=== PATIENT | male | born 1950 | race Caucasian/White ===

== ENCOUNTER 2020-05-27 11:08 | Emergency (ER) | payer MEDICARE ==
[~2020-05-27] VITALS: Ht 175.3 cm; Wt 82.7 kg
[~2020-05-27 11:08] MED LIST: PANT-47 PO
[2020-05-27 11:35] VITALS: BP 127/94
[2020-05-27] MEDS ORDERED: LIDOcaine 1% W/epiNEPHrine 1:200,000 10ml vial IJ ONE (12:10)
[2020-05-27] MEDS ORDERED: TETanus/Pertussis (Acell)/Diphther VAC/PF (Tdap-Adult) 0.5ml syringe IMVAC ONE (12:10)
== END 2020-05-27 14:24 | disposition home or self-care (01) ==
LOC: ER 11:09
DX: S61.217A Laceration without foreign body of left little finger without damage to nail, initial encounter (principal); Z98.890 Other specified postprocedural states; Z79.899 Other long term (current) drug therapy; W26.0XXA Contact with knife, initial encounter; Y93.89 Activity, other specified; Y92.89 Other specified places as the place of occurrence of the external cause; Y99.8 Other external cause status
CPT/HCPCS: 12001; 90715; 99282

== ENCOUNTER 2020-06-21 14:08 | Emergency (ER) | payer MEDICARE ==
[~2020-06-21] VITALS: Ht 175.3 cm; Wt 84.0 kg
[2020-06-21 14:30] VITALS: BP 126/95
== END 2020-06-21 16:45 | disposition home or self-care (01) ==
LOC: ER 14:09
DX: M25.442 Effusion, left hand (principal); Z79.899 Other long term (current) drug therapy; Z98.890 Other specified postprocedural states
CPT/HCPCS: 29130; 73140; 99283

== ENCOUNTER 2020-06-24 16:48 | Emergency (ER) | payer MEDICARE ==
[~2020-06-24] VITALS: Ht 175.3 cm; Wt 82.7 kg
[2020-06-24 16:57] VITALS: BP 172/99
[2020-06-24] MEDS ORDERED: ketorolac trometh. 30mg/ml inj. IM ONE (17:15)
[2020-06-24] MEDS ORDERED: ketorolac tromethamine 15mg/ml inj. IM ONE (17:20)
== END 2020-06-24 17:41 | disposition home or self-care (01) ==
LOC: ER 17:40
DX: S16.1XXA Strain of muscle, fascia and tendon at neck level, initial encounter (principal); Z79.899 Other long term (current) drug therapy; X50.1XXA Overexertion from prolonged static or awkward postures, initial encounter; Y93.89 Activity, other specified; Y92.89 Other specified places as the place of occurrence of the external cause; Y99.8 Other external cause status
CPT/HCPCS: 96372; 99283; J1885

== ENCOUNTER 2021-04-30 08:00 | Emergency (ER) | payer MEDICARE ==
[~2021-04-30] VITALS: Ht 175.3 cm; Wt 69.8 kg
[2021-04-30 08:04] VITALS: BP 141/93
== END 2021-04-30 12:10 | disposition left against medical advice (07) ==
LOC: ER 08:00
DX: M54.2 Cervicalgia (principal); Z53.21 Procedure and treatment not carried out due to patient leaving prior to being seen by health care provider

== ENCOUNTER 2021-05-02 06:51 | Emergency (ER) | payer MEDICARE ==
[~2021-05-02] VITALS: Ht 175.3 cm; Wt 86.4 kg
[2021-05-02 13:49] VITALS: BP 165/103
[2021-05-02] MEDS ORDERED: CYCL-1 PO (16:09)
== END 2021-05-02 16:20 | disposition home or self-care (01) ==
LOC: ER 06:52
DX: S16.1XXA Strain of muscle, fascia and tendon at neck level, initial encounter (principal); M62.838 Other muscle spasm; M48.02 Spinal stenosis, cervical region; Z79.899 Other long term (current) drug therapy; X58.XXXA Exposure to other specified factors, initial encounter; Y93.89 Activity, other specified; Y92.89 Other specified places as the place of occurrence of the external cause; Y99.8 Other external cause status
CPT/HCPCS: 72040; 99283